=== PATIENT | male | born 1995 | race Two or more races ===

== ENCOUNTER 2017-07-03 08:50 | Emergency (ER) | payer MEDICAID, OTHER ==
[~2017-07-03] VITALS: Ht 172.7 cm; Wt 77.1 kg
[~2017-07-03 08:50] MED LIST: ALBUAER3 IN; AMOX-263; CEPH-37 PO; PRED-188 PO; PRO AIR; PROMCRY
[2017-07-03 09:03] VITALS: BP 122/82
[2017-07-03] MEDS ORDERED: KETOROLAC TROMETH 60MG/2ML VIAL IM ONE (09:30)
== END 2017-07-03 11:42 | disposition home or self-care (01) ==
LOC: ER 08:50
DX: S33.5XXA Sprain of ligaments of lumbar spine, initial encounter (principal); J45.909 Unspecified asthma, uncomplicated; Z79.899 Other long term (current) drug therapy; X58.XXXA Exposure to other specified factors, initial encounter; Y93.89 Activity, other specified; Y92.89 Other specified places as the place of occurrence of the external cause; Y99.8 Other external cause status
CPT/HCPCS: 72110; 96372; 99284; J1885

== ENCOUNTER 2023-02-20 09:03 | Emergency (ER) | payer MEDICAID, OTHER ==
[~2023-02-20] VITALS: Ht 172.7 cm; Wt 83.8 kg
[2023-02-20 10:03] VITALS: BP 120/70; PULSE 68; RESP 17; TEMP 97.5; O2SAT 98
[2023-02-20] MEDS ORDERED: HYDROcodone-ACET 5/325MG TAB PO ONE (10:15)
[2023-02-20] MEDS ORDERED: NEOMYCIN-BACITRACIN-POLYM UNITDOSE PKG TOP OINT TOP ONE (10:24)
[2023-02-20] MEDS ORDERED: CIPR500T4 PO (11:20)
[2023-02-20] MEDS ORDERED: NEOMYCIN-BACITRACIN-POLYM 15GM TOP OINT TOP SCH (22:00)
== END 2023-02-20 11:56 | disposition home or self-care (01) ==
LOC: ER 09:03
DX: S60.457A Superficial foreign body of left little finger, initial encounter (principal); J45.909 Unspecified asthma, uncomplicated; X58.XXXA Exposure to other specified factors, initial encounter; Y93.89 Activity, other specified; Y92.89 Other specified places as the place of occurrence of the external cause; Y99.8 Other external cause status
CPT/HCPCS: 10120; 73120